=== PATIENT | female | born 1950 ===

== ENCOUNTER 2016-07-22 07:17 | Inpatient (IN) | payer OTHER ==
[2016-07-22] VITALS (18 sets, daily range): BP systolic 76–135; BP diastolic 36–75
[~2016-07-22] VITALS: Ht 158.8 cm; Wt 70.8 kg
[~2016-07-22 07:17] MED LIST: Pantoprazole Inj IVP ONE; Vancomycin 1 GM in D5W 275 ML IVPB ONE
[2016-07-22] MEDS ORDERED: Glycopyrrolate 0.2mg/ml 1ml Vial ONE (10:00)
[2016-07-22] MEDS ORDERED: Neostigmine 1mg/ml 10ml Inj ONE (10:00)
[2016-07-22] MEDS ORDERED: LR 1000ml ONE (10:00)
[2016-07-22] MEDS ORDERED: Succinylcholine 20mg/ml 10ml vial ONE (10:00)
[2016-07-22] MEDS ORDERED: NS Irrig 1000ml ONE (10:00)
[2016-07-22] MEDS ORDERED: Ketorolac 30mg Inj ONE (10:00)
[2016-07-22] MEDS ORDERED: Zemuron 50mg/5ml Inj IV ONE (10:00)
[2016-07-22] MEDS ORDERED: fentaNYL 100 mcg/2 mL IV ONE (10:00)
[2016-07-22] MEDS ORDERED: Midazolam 2mg/2ml Inj ONE (10:00)
[2016-07-22] MEDS ORDERED: Propofol 10mg/ml 100ml btl IV ONE (10:00)
[2016-07-22] MEDS ORDERED: Morphine Sulfate 10mg/ml Inj ONE (10:00)
[2016-07-22] MEDS ORDERED: Bacitracin Oint 15gm Tube TOPIC ONE (10:20)
[2016-07-22] MEDS ORDERED: Thrombin 5000 units TOPIC ONE (10:20)
[2016-07-22] MEDS ORDERED: Gelfoam Absorbable 1gm powder pkt TOPIC ONE ×2 (10:21→12:37)
[2016-07-22] MEDS ORDERED: Thrombin 5000 units spray kit TOPIC ONE ×2 (10:21→12:35)
[2016-07-22] MEDS ORDERED: Bupivacaine w/Epi 0.25% 30ml Vial INJ ONE (10:21)
[2016-07-22] MEDS ORDERED: Bacitracin 50000 Units Vial ONE (10:22)
[2016-07-22] MEDS ORDERED: Vancomycin 1gm inj IVPB ONE (10:37)
[2016-07-22] MEDS ORDERED: ATENOLOL50 MG ORAL (10:55)
[2016-07-22] MEDS ORDERED: LEVOTHYROXINE50 MCG ORAL (10:56)
[2016-07-22] MEDS ORDERED: COZAAR50 MG ORAL (10:56)
[2016-07-22] MEDS ORDERED: METFORMIN HCL500 M4 ORAL (10:57)
--- NOTE | 2016-07-22 11:16 | Pre-Procedure Note/Attestation ---
Pre-Procedure Note/Attestation Complete Prior to Procedure Planned Procedure: bilateral Procedure Narrative: posterior lumbar decompression surgery L5-S1, interbody fusion with PEEK cage and bilateral pedicle screw fixation L5-S1, iliac crest bone marrow aspiration abd posterolateral arthrodesis. Attestation I attest that I discussed the nature of the procedure; its benefits; risks and complications; and alternatives (and the risks and benefits of such alternatives ), prior to the procedure, with the patient (or the patient's legal patient account representative). I attest that, if there was a reasonable possibility of needing a blood transfusion, the patient (or the patient's legal patient account representative) was given the [place] Department [facility] [employer] Services standardized written summary, pursuant to the Alpesh Juan Francisco Blood Safety Act ([place] Health and Safety Code # 1645, as amended). I attest that I re-evaluated the patient just prior to the surgery and that there has been no change in the patient's H&P, except as documented below: NIRMAL LIEBERMAN Jul 22, 2016 11:16
[2016-07-22] MEDS ORDERED: LR 1000ml 1,000 ML IVLG SCH (12:36)
--- NOTE | 2016-07-22 12:36 | Anethesia Preoperative Eval ---
Anesthesia Pre-op PMH/ROS General Date of Evaluation: Jul 22, 2016 Time of Evaluation: 10:48 Anesthesiologist: Connie Mallampati Score Class I : Soft palate, uvula, fauces, pillars visible Class II: Soft palate, uvula, fauces visible Class III: Soft palate, base of uvula visible Class IV: Only hard plate visible Mallampati Classification: Class II Surgeon: Indra Diagnosis: Lumbar radiculopathy Surgical Procedure: L5-S1 laminotomy with decompression and interbody fusion Anesthesia History: none Family History: no anesthesia problems Allergies: Coded Allergies: No Known Allergies (Unverified , 07/21/16) Medications: see eMAR Past Medical History Cardiovascular: Reports: HTN - stable, Denies: CAD, [place], arrhythmia, other, valve dz Pulmonary: Denies: COPD, KATRIN, asthma, other Gastrointestinal/Genitourinary: Reports: GERD - mild, Denies: CRI, ESRD, other Neurologic/Psychiatric: Reports: other - chronic pain, Denies: CVA, TIA, dementia, depression/anxiety Endocrine: Reports: DM - stable on pills, hypothyroidism, Denies: other, steroids HEENT: Denies: [place] (L), [place] (R), cataract (L), cataract (R), glaucoma, other Hematology/Immune: Denies: DVT, anemia, bleeding disorder, other Musculoskeletal/Integumentary: Denies: DDD, DJD, OA, RA, edema, other PMH Narrative: as above PSxH Narrative: T&A Anesthesia Pre-op Phys. Exam Physician Exam Last Vital Signs Date Time Temp Pulse Resp B/P Pulse Ox O2 Delivery O2 Flow Rate FiO2 07/22/16 10:11 98.0 52 20 135/75 97 Room Air Constitutional: NAD Neurologic: CN 2-12 intact Cardiovascular: RRR, no M/R/G Respiratory: CTA Gastrointestinal: S/NT/ND Airway Exam Mallampati Score: Class II MO: full Neck: flexible ROM: full Teeth: missing Dentures: lower, upper - partiakl Anesthesia Pre-op A/P Labs see chart Accucheck 107 at admission Studies Pre-op Studies: EKG - NSR Risk Assessment & Plan Assessment: ASA 3 Plan: GA with ETT prone position neuromonitoring Status Change Before Surgery: No Pre-Antibiotics Drug: Vancomycin 1gr. gentamycin 80mg. Given Within 1 Hr of Incision: Yes Time Given: 11:50 LEMUEL BUTLER M.D. Jul 22, 2016 12:36
[2016-07-22] MEDS ORDERED: HYDROmorphone 1mg/ml Carpuject IVP PRN (12:45)
[2016-07-22] MEDS ORDERED: Naloxone 0.4mg/ml Inj IVP PRN (12:45)
[2016-07-22] MEDS ORDERED: Hydromorphone 0.5mg/0.5ml inj IVP PRN (12:45)
[2016-07-22] MEDS ORDERED: Metoclopramide 10mg/2ml Inj IVP PRN (12:45)
[2016-07-22] MEDS ORDERED: Midazolam 2mg/2ml Inj IVP PRN (12:45)
[2016-07-22] MEDS ORDERED: Meperidine 25mg/ml Inj IV PRN (12:45)
[2016-07-22] MEDS ORDERED: DiphenhydrAMINE 50mg/ml Inj IVP PRN ×2 (12:45)
[2016-07-22] MEDS ORDERED: PCA HYDROmorphone 1mg/ml 30 ML IV PRN (12:45)
[2016-07-22] MEDS ORDERED: fentaNYL 100 mcg/2 mL IV PRN (12:45)
[2016-07-22] MEDS ORDERED: Rate Change PCA 1 Each MISC PRN (12:45)
--- NOTE | 2016-07-22 15:34 | Brief Operative Note ---
Immediate Post Operative Note Operative Note Chief Complaint: severe low back pain and right leg pain Pre-op Diagnosis: Intractable low back pain and right lower extremity radiculopathy lack of improvement from conservative care and interventional pain injections disc collapse and lumbar stenosis at L5-S1 Procedure: 1. posterior lumbar decompression, bilateral L5 hemilaminectomies, medial facetectomies and foraminotomies 2. bilateral S1 foraminotomies 3. Transpedicular fixation at L5 and S1 levels, bilaterally, using 50 mm by 5.0 and 45 mm by 6.0 mm screws, Medacta. 4. posterolateral arthrodesis bilaterally at L4-5, using allograft, autograft and bone marrow aspirate 5. Right iliac crest bone marrow aspiration 6. [place] of local bone from lami for grafting 7. Microdissection using intra-operative microscope 8. Use and interpretation of neuromonitoring, including free run Electromyography, pedicle screw stimulation, and dermatomal and somatosensory evoked potentials 9. Use and supervision and interpretation of fluoroscopy 10. Application of fat graft to the epidural space at L5-S1 bilaterally 11. Plastic surgical closure of lumbar wound 10-cm 12. Placement of HV epidural drain 13. Modifier 22 for degree of difficulty due to the depth of the surgical corridor. Post-op Diagnosis: same as pre-op Findings: consistent w/pre-op dx studies Surgeon: Sahil Burrell M.D. Supervisor Prepress: Ranjit Darling M.D. Anesthesiologist: Dr. Rosales Anesthesia: general Specimen: none Complications: none Condition: stable Fluids: 1.2 liters Crystalloids Estimated Blood Loss: volume - 50 cc Drains: hemovac Implant(s) used?: Yes - Medacta pedicle screws, Alfalf[place], bone marrow autologous SAHIL BURRELL Jul 22, 2016 15:34
--- NOTE | 2016-07-22 15:41 | Immediate Post-Op Evaluation ---
Immediate Post-Op Evalulation Immediate Post-Op Evalulation Procedure: L5-S1 laminotomy with decompression and interbody fusion Date of Evaluation: Jul 22, 2016 Time of Evaluation: 15:39 IV Fluids: 1500 Blood Products: none Estimated Blood Loss: 50 Urinary Output: 200 Blood Pressure Systolic: 98 Blood Pressure Diastolic: 56 Pulse Rate: 75 Respiratory Rate: 20 O2 Sat by Pulse Oximetry: 99 Temperature (Fahrenheit): 97.5 Pain Score (1-10): 2 Nausea: No Vomiting: No Complications none Patient Status: reacts, patent, extubated, none Hydration Status: adequate LEMUEL BUTLER M.D. Jul 22, 2016 15:41
--- NOTE | 2016-07-22 16:07 | General Progress Note ---
Progress Note Progress Note Neurosurgery Post-op S/ Comfortable O/ Af Vsnl Alert interactive Moves all extremities well no leg pain sensation is symmetrical in lower extremities drain minimal output doing well notified ASSOCIATE PROFESSOR OF [employer] Dr. Smart for internal medicine NIRMAL LIEBERMAN Jul 22, 2016 16:07
[2016-07-22] MEDS: PCA shift volume MISC SCH (19:00)
--- NOTE | 2016-07-22 19:52 | General Progress Note ---
Assessment/Plan Status Narrative s/p complex spine surgery hypertension hypothyroid diabetes Assessment/Plan perioperative antibiotic prophyalxis PT\OT DVT PROPHYLAXIS PAIN CONTROL FOLLOW BRANDONLEY FAR HER DIABETES WILL CHECK BMP IN AM ACCUCECHK SLIDING SCALE ADA DIET HYEPRTENISON ON ATENOLOL WILL PLACE HOLD PARAMETERS HYPOTHYROID RESUME SYNTHYROOID Subjective Date patient seen: Jul 22, 2016 Time patient seen: 19:49 Constitutional: Reports: no symptoms HEENT: Reports: no symptoms Cardiovascular: Reports: no symptoms Respiratory: Reports: no symptoms Gastrointestinal/Abdominal: Reports: no symptoms Allergies: Coded Allergies: No Known Allergies (Unverified , 07/21/16) Objective Last 24 Hour Vital Signs Date Time Temp Pulse Resp B/P Pulse Ox O2 Delivery O2 Flow Rate FiO2 07/22/16 18:38 98.2 60 20 122/55 99 Nasal Cannula 2.0 07/22/16 18:30 71 20 118/55 99 Nasal Cannula 2.0 07/22/16 18:15 71 20 118/55 99 Nasal Cannula 2.0 07/22/16 18:00 62 20 115/53 99 Nasal Cannula 2.0 07/22/16 17:45 61 20 108/54 99 Nasal Cannula 2.0 07/22/16 17:30 60 20 104/53 99 Nasal Cannula 2.0 07/22/16 17:19 20 07/22/16 17:15 62 20 104/49 99 Nasal Cannula 2.0 07/22/16 17:04 20 07/22/16 17:00 61 20 102/52 99 Nasal Cannula 2.0 07/22/16 16:47 20 07/22/16 16:45 62 20 119/55 100 Nasal Cannula 2.0 07/22/16 16:32 72 20 113/55 100 Simple Mask 8.0 07/22/16 16:32 20 07/22/16 16:15 65 20 110/60 100 Simple Mask 8.0 07/22/16 16:00 70 20 105/62 100 Simple Mask 8.0 07/22/16 15:45 72 20 95/53 100 Simple Mask 8.0 07/22/16 15:41 75 20 99 07/22/16 15:34 69 20 90/53 100 Simple Mask 8.0 07/22/16 15:29 72 20 77/38 100 Simple Mask 8.0 07/22/16 15:24 98.0 72 20 76/36 100 Simple Mask 8.0 07/22/16 10:11 98.0 52 20 135/75 97 Room Air Height (Feet): 5 Height (Inches): 2.50 Weight (Pounds): 156 General Appearance: WD/WN Neck: non-tender Cardiovascular: normal rate, regular rhythm, no JVD Respiratory/Chest: lungs clear Abdomen: soft Extremities: other - no edema JEFFREY KINGSLEY Jul 22, 2016 19:52
[2016-07-22] MEDS ORDERED: Milk of Magnesia 30ml Ud ORAL PRN (20:00)
[2016-07-22] MEDS: NovoLOG Insulin Flexpen SUBQ SCH (21:00)
[2016-07-22] MEDS: Docusate 100mg tablet ORAL SCH ×2 (21:00→21:14)
[2016-07-22] MEDS: Pericolace tab ORAL SCH ×2 (21:00→21:14)
[2016-07-22] MEDS: 1/2NS w/KCl 20mEq 1000ml 1,000 ML IV SCH (21:14)
[2016-07-22] MEDS: Vancomycin 1 GM in D5W 275 ML IVPB SCH (21:14)
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
[2016-07-23] VITALS (7 sets, daily range): BP systolic 103–133; BP diastolic 49–63
[2016-07-23] MEDS: NovoLOG Insulin Flexpen SUBQ SCH ×4 (06:10→20:22)
[2016-07-23] MEDS ORDERED: metFORMIN 500mg tab ORAL SCH (06:30)
[2016-07-23] MEDS: PCA shift volume MISC SCH (07:00)
[2016-07-23 07:34] LABS: BASOPHILS % (AUTO) 0.4 % (0.0-2.0); EOSINOPHILS % (AUTO) 0.4 % (0.0-3.0); LYMPHOCYTES % (AUTO) 14.3 % (20.0-45.0); MEAN CORPUSCULAR VOLUME 94 FL (80-99); MONOCYTES % (AUTO) 6.3 % (1.0-10.0); NEUTROPHILS % (AUTO) 78.7 % (45.0-75.0); PLATELET COUNT 240 K/UL (150-450); WHITE BLOOD COUNT 11.2 K/UL (4.8-10.8)
[2016-07-23 07:44] LABS: ANION GAP 14 (5-15); CALCIUM 8.4 mg/dL (8.6-10.2); CARBON DIOXIDE 27 mEQ/L (20-30); CHLORIDE 95 mEQ/L (98-107); CREATININE 0.8 mg/dL (0.5-0.9); GLOMERULAR FILTRATION RATE > 60 mL/min (>60); HEMOLYSIS 5; POTASSIUM 4.4 mEQ/L (3.4-4.9); SODIUM 136 mEQ/L (135-145)
[2016-07-23] MEDS ORDERED: Norco 7.5mg/325mg tab ORAL PRN (08:15)
[2016-07-23] MEDS ORDERED: Naloxone 0.4mg/ml Inj IVP PRN (08:15)
[2016-07-23] MEDS ORDERED: HYDROmorphone 1mg/ml Carpuject IVP PRN (08:16)
[2016-07-23] MEDS: Vancomycin 1 GM in D5W 275 ML IVPB SCH (08:31)
--- NOTE | 2016-07-23 08:32 | Diagnostic Imaging Report ---
Indication: PAIN, intraoperative Technique: Digital intraoperative images Comparison: None Findings: Intraoperative images demonstrate initially a surgical tool posterior to the L5-S1 disc. Subsequent images document posterior fusion at L5-S1. Impression: Intraoperative imaging, as described
[2016-07-23] MEDS: Pericolace tab ORAL SCH ×2 (08:33→17:45)
[2016-07-23] MEDS: metFORMIN 500mg tab ORAL SCH ×2 (08:34→17:45)
[2016-07-23] MEDS: Docusate 100mg tablet ORAL SCH ×2 (08:34→17:45)
--- NOTE | 2016-07-23 08:36 | General Progress Note ---
Progress Note Progress Note Neurosurgery s/ No leg pain. minimal incision pain at this time pain 6/10 last night. O/ Vs HV 100 cc 24 hrs Vital Sign - Last 24 Hours 07/22/16 07/22/16 07/22/16 07/22/16 10:11 15:24 15:29 15:34 Temp 98.0 98.0 Pulse 52 72 72 69 Resp 20 20 20 20 B/P 135/75 76/36 77/38 90/53 Pulse Ox 97 100 100 100 O2 Delivery Room Air Simple Mask Simple Mask Simple Mask O2 Flow Rate 8.0 8.0 8.0 07/22/16 07/22/16 07/22/16 07/22/16 15:41 15:45 16:00 16:15 Pulse 75 72 70 65 Resp 20 20 20 20 B/P 95/53 105/62 110/60 Pulse Ox 99 100 100 100 O2 Delivery Simple Mask Simple Mask Simple Mask O2 Flow Rate 8.0 8.0 8.0 07/22/16 07/22/16 07/22/16 07/22/16 16:32 16:32 16:45 16:47 Pulse 72 62 Resp 20 20 20 20 B/P 113/55 119/55 Pulse Ox 100 100 O2 Delivery Simple Mask Nasal Cannula O2 Flow Rate 8.0 2.0 07/22/16 07/22/16 07/22/16 07/22/16 17:00 17:04 17:15 17:19 Pulse 61 62 Resp 20 20 20 20 B/P 102/52 104/49 Pulse Ox 99 99 O2 Delivery Nasal Cannula Nasal Cannula O2 Flow Rate 2.0 2.0 07/22/16 07/22/16 07/22/16 07/22/16 17:30 17:45 18:00 18:15 Pulse 60 61 62 71 Resp 20 20 20 20 B/P 104/53 108/54 115/53 118/55 Pulse Ox 99 99 99 99 O2 Delivery Nasal Cannula Nasal Cannula Nasal Cannula Nasal Cannula O2 Flow Rate 2.0 2.0 2.0 2.0 07/22/16 07/22/16 07/22/16 07/22/16 18:30 18:38 19:00 19:30 Temp 98.2 Pulse 71 60 Resp 20 20 20 20 B/P 118/55 122/55 Pulse Ox 99 99 O2 Delivery Nasal Cannula Nasal Cannula O2 Flow Rate 2.0 2.0 07/22/16 07/23/16 07/23/16 07/23/16 20:45 00:00 00:28 04:00 Temp 97.2 97.3 Pulse 59 83 Resp 18 20 19 20 B/P 106/49 120/49 Pulse Ox 100 100 O2 Delivery Nasal Cannula Nasal Cannula O2 Flow Rate 2.0 07/23/16 07/23/16 07/23/16 04:08 07:53 08:00 Temp 97.7 97.5 Pulse 68 79 Resp 18 20 20 B/P 103/55 133/63 Pulse Ox 99 98 O2 Delivery Nasal Cannula Nasal Cannula O2 Flow Rate 2.0 2.0 Intake and Output 07/22/16 07/22/16 07/23/16 15:00 23:00 07:00 Intake Total 1550 ml 885 ml Output Total 485 ml 500 ml Balance 1065 ml 385 ml Alert and oriented x 4 Moves all extremities well distally very strong in the muscle groups tested incision completely dry. HV in place Labs: Laboratory Tests Test 07/23/16 05:25 White Blood Count 11.2 K/UL (4.8-10.8) H Red Blood Count 4.00 M/UL (4.20-5.40) L Hemoglobin 12.4 G/DL (12.0-16.0) Hematocrit 37.5 % (37.0-47.0) Mean Corpuscular Volume 94 FL (80-99) Mean Corpuscular Hemoglobin 31.0 PG (27.0-31.0) Mean Corpuscular Hemoglobin Concent 33.0 G/DL (32.0-36.0) Red Cell Distribution Width 12.0 % (11.6-14.8) Platelet Count 240 K/UL (150-450) Mean Platelet Volume 7.0 FL (6.5-10.1) Neutrophils (%) (Auto) 78.7 % (45.0-75.0) H Lymphocytes (%) (Auto) 14.3 % (20.0-45.0) L Monocytes (%) (Auto) 6.3 % (1.0-10.0) Eosinophils (%) (Auto) 0.4 % (0.0-3.0) Basophils (%) (Auto) 0.4 % (0.0-2.0) Sodium Level 136 mEQ/L (135-145) Potassium Level 4.4 mEQ/L (3.4-4.9) Chloride Level 95 mEQ/L (98-107) L Carbon Dioxide Level 27 mEQ/L (20-30) Anion Gap 14 (5-15) Blood Urea Nitrogen 11 mg/dL (7-23) Creatinine 0.8 mg/dL (0.5-0.9) Estimat Glomerular Filtration Rate > 60 mL/min (>60) Glucose Level 137 mg/dL (74-106) H Calcium Level 8.4 mg/dL (8.6-10.2) L doing well PT/OT bowel care Continue d/c planning Internal med f/u appreciated ADA diet NIRMAL LIEBERMAN Jul 23, 2016 08:36
[2016-07-23] MEDS ORDERED: Losartan 50mg tab ORAL SCH ×2 (09:00→21:00)
[2016-07-23] MEDS: 1/2NS w/KCl 20mEq 1000ml 1,000 ML IV SCH ×2 (09:50→14:59)
[2016-07-23] MEDS: Norco 7.5mg/325mg tab ORAL PRN ×2 (12:16→23:32)
[2016-07-23] MEDS ORDERED: D5 1/2NS 1000ml IV ONE (15:14)
[2016-07-23] MEDS ORDERED: Tubing IV Secondary IV ONE (15:14)
--- NOTE | 2016-07-23 16:57 | 48 Hour Post Anesthesia Eval ---
Post Anesthesia Evaluation Procedure: L5-S1 laminotomy with decompression and interbody fusion Date of Evaluation: Jul 23, 2016 Time of Evaluation: 16:56 Blood Pressure Systolic: 108 0: 72 Pulse Rate: 74 Respiratory Rate: 20 Temperature (Fahrenheit): 97.6 O2 Sat by Pulse Oximetry: 98 Airway: patent Nausea: No Vomiting: No Pain Intensity: 2 Hydration Status: adequate Cardiopulmonary Status: stable Mental Status/LOC: patient returned to baseline Follow-up Care/Observations: n/a Post-Anesthesia Complications: none Follow-up care needed: N/A LEMUEL BUTLER M.D. Jul 23, 2016 16:57
[2016-07-24 04:00] VITALS: BP 108/58
[2016-07-24] MEDS: NovoLOG Insulin Flexpen SUBQ SCH ×2 (06:23→11:30)
[2016-07-24] MEDS: Pericolace tab ORAL SCH (08:39)
[2016-07-24] MEDS: metFORMIN 500mg tab ORAL SCH (08:39)
[2016-07-24] MEDS: Docusate 100mg tablet ORAL SCH (08:39)
[2016-07-24] MEDS: Norco 7.5mg/325mg tab ORAL PRN (08:40)
[2016-07-24] MEDS ORDERED: Neosporin Oint Ud Pkt TOPIC ONE (11:15)
--- NOTE | 2016-07-24 11:34 | General Progress Note ---
Progress Note Progress Note Neurosurgery POD #2 S/ Ambulating, voiding and pain controlled with oral meds. O/ VS: Last 24 Hour Vital Signs Date Time Temp Pulse Resp B/P Pulse Ox O2 Delivery O2 Flow Rate FiO2 07/24/16 09:39 98.4 07/24/16 04:00 98.4 85 18 108/58 97 Room Air 07/23/16 23:51 99.4 80 18 125/58 97 Room Air 07/23/16 20:20 112/61 07/23/16 20:20 70 112/61 07/23/16 20:00 97.9 70 19 112/61 98 Room Air 07/23/16 16:57 74 20 98 07/23/16 16:00 98.4 67 20 109/63 100 Room Air 07/23/16 12:07 98.2 64 19 122/58 99 Room Air HV 35 cc last shif Dressing changed and drain removed Motor exam 5/5 normal sensation in good spirits doing well D/c planning D/c instructions reviewed with pt and nursing. NIRMAL LIEBERMAN Jul 24, 2016 11:34
[2016-07-24 12:12] VITALS: BP 125/70
--- NOTE | 2016-07-24 18:17 | Discharge Summary ---
DATE OF ADMISSION: 07/22/2016 DATE OF DISCHARGE: 07/24/2016 DISCHARGE DIAGNOSES: 1. Status post lumbar decompressive surgery bilaterally L5-S1. 2. Pedicle screw fixation. 3. Postoperative arthrodesis L5-S1. HISTORY OF PRESENT ILLNESS: Refer to the chart for detailed History and Physical. HOSPITAL COURSE: The patient was admitted on 07/22/2016. She underwent uneventful post lumbar decompressive surgery bilaterally L5-S1 and bone marrow aspiration and pedicle screw fixation. Her right leg pain has resolved since surgery. She is ambulating. She has voided and she is tolerating p.o. pain medications with excellent pain control. She has been discharged home with appropriate discharge instructions. DISPOSITION: Home. DIET: [place]ian diabetic diet. MEDICATIONS: [place] and Flexeril in addition to her home diabetic medication and antihypertensive. The patient is asked not to take any aspirin or NSAID until further notice. DISCHARGE ACTIVITY: The patient is instructed to wear her lumbar brace when out of bed and ambulating. She is asked not to bend, twist or lift until cleared. Additionally, the patient is instructed to call Dr. Burrell or go to the nearest ER in case of fever more than 101.5 degrees, redness, chills or drainage from the incision. Follow up with Dr. Burrell in two weeks. Consultation, Dr. Smart, [facility]. Sahil Burrell M.D. DR: ANGELA JOB#: [id number] CC:
== END 2016-07-24 15:32 | disposition home or self-care (01) | DRG 460 ==
LOC: SDSOVERFLO 09:11 → 3E 20:22 → 4W 07-24 10:45
DX: M51.16 Intervertebral disc disorders with radiculopathy, lumbar region (principal); M48.06 Spinal stenosis, lumbar region; V89.2XXS Person injured in unspecified motor-vehicle accident, traffic, sequela
CPT/HCPCS: 36415; 72020; 76001; 80048; 82962; 85025; 86850; 86900; 86901; 87081; 94003; 94150; C9399; J1580; J1815; J2250; J2405; J2710